=== PATIENT | female | born 1935 | race Caucasian/White ===

== ENCOUNTER 2024-05-20 10:48 | Emergency (ER) | payer OTHER, MEDICARE ==
[2024-05-20 11:44] LABS: Absolute Basophils 0.1 K/uL (0-0.5); Absolute Lymphocytes (CBC) 2.2 K/uL (0.7-4.9); Absolute Monocytes 0.5 K/uL (0.1-1.3); Absolute Neutrophil 17.8 K/uL (1.8-8.0); Basophils % 0.3 % (0-1.3); Eosinophils % 0.2 % (0-4.4); Hematocrit 18.4 % (36.0-45.0); Lymphocytes % 10.8 % (15.3-44.8); MCH 30.9 pg (27.0-35.0); MCHC 32.5 g/dL (32.0-36.0); Monocytes % 2.6 % (3.3-12.3); Neutrophils % 86.1 % (41.7-73.7); Platelets 543 thou/uL (152-406); RBC Red Blood Cell Count 1.93 M/uL (3.86-4.86); Red Cell Distribution Width 14.2 % (12.1-15.2)
--- NOTE | 2024-05-20 11:48 | RAD REPORT ---
Procedure: Chest Single View HISTORY: Shortness of breath COMPARISON: none FINDINGS: Mild patchy right upper lobe opacities. Mild left upper lobe opacity. Peribronchial thickening. No significant pleural effusion noted. The heart is normal size. IMPRESSION: Mild patchy right upper lobe opacities probably pneumonia. Mild left upper lobe opacities may represent additional infection.
[2024-05-20 11:52] LABS: Protime INR 1.24
[2024-05-20 12:07] LABS: ALT/SGPT 30 U/L (13-56); AST/SGOT 23 U/L (15-37); Albumin 2.3 g/dL (3.4-5.0); Albumin/Globulin Ratio 0.6 (1.1-1.8); Alkaline Phosphatase 82 U/L (45-117); Anion Gap 8.8 mEq/L (5.0-15.0); BUN Blood Urea Nitrogen 46 mg/dL (7-18); Bicarbonate 28 mEq/L (21-32); Bilirubin Total 0.2 mg/dL (0.2-1.0); Globulin 4.1 g/dL (2.3-3.5); Glomerular Filtration Rate 47 ml/min (=/>90); Glucose Level 116 mg/dL (74-106); NT PRO-BNP 258 pg/mL (<450); Potassium 3.8 mEq/L (3.5-5.1); Protein, Total 6.4 g/dL (6.4-8.2); Sodium Level 136 mEq/L (136-145); Troponin High Sensitivity 4.8 pg/mL (<58.9)
[2024-05-20 12:08] LABS: Bilirubin Direct < 0.2 mg/dL (0-0.2)
[2024-05-20] MEDS ORDERED: NA CHLORIDE 0.9% 100 ML ONE (12:14)
[2024-05-20] MEDS ORDERED: VANCOMYCIN 1 GM/VIAL ONE (12:15)
[2024-05-20] MEDS ORDERED: NA CHLORIDE 0.9% 250 ML ONE ×2 (12:15→17:57)
[2024-05-20] MEDS ORDERED: CEFEPIME 1 GM/VIAL ONE (12:15)
[2024-05-20 12:17] LABS: Influenza A Ag Negative; Influenza B Ag Negative; SARS-CoV-2 Antigen Rapid Res Negative (Negative)
--- NOTE | 2024-05-20 13:44 | EDPHYS ---
Physician Documentation [facility] Name: Meenu Rangel Age: 89 yrs Sex: Female : 1935 Arrival Date: 05/20/2024 Time: 10:48 Bed 8 Private MD: ED Physician Julee Sierra HPI: 05/20 10:50 This 89 yrs old Female presents to ER via Unassigned with complaints of COPD, SOB. sp3 10:50 89-year-old female with history of COPD and lung cancer presents to the ED from nursing sp3 home across the street for chief complaint cough and congestion and concerns of COPD exacerbation coupled with wheezing. No history of CHF noted. Patient denies any headache, fever, chest pain, abdominal pain, vomiting, syncope, rash, known sick contacts, or any other signs or symptoms on ROS at this time. She does endorse mild diarrhea which started yesterday evening.. 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 - Infectious Disease History:: Denies. - Social history:: Smoking status: Patient denies any tobacco usage or history of. ROS: 10:51 Constitutional: Negative for fever, chills, and weight loss, Eyes: Negative for injury, sp3 pain, redness, and discharge, ENT: Negative for injury, pain, and discharge, Neck: Negative for injury, pain, and swelling, Cardiovascular: Negative for chest pain, palpitations, and edema, Back: Negative for injury and pain, MS/Extremity: Negative for injury and deformity, Skin: Negative for injury, rash, and discoloration, Neuro: Negative for headache, weakness, numbness, tingling, and seizure, Psych: Negative for depression, anxiety, suicide ideation, homicidal ideation, and hallucinations, Allergy/Immunology: Negative for hives, rash, and allergies, Endocrine: Negative for neck swelling, polydipsia, polyuria, polyphagia, and marked weight changes, Hematologic/Lymphatic: Negative for swollen nodes, abnormal bleeding, and unusual bruising, 10:51 All other systems are negative, Exam: 10:51 Constitutional: This is a well developed, well nourished patient who is awake, alert, sp3 and in no acute distress. Head/Face: Normocephalic, atraumatic. Eyes: Pupils equal round and reactive to light, extra-ocular motions intact. Lids and lashes normal. Conjunctiva and sclera are non-icteric and not injected. Cornea within normal limits. Periorbital areas with no swelling, redness, or edema. Neck: Trachea midline, no thyromegaly or masses palpated, and no cervical lymphadenopathy. Supple, full range of motion without nuchal rigidity, or vertebral point tenderness. No Meningismus. Chest/axilla: Normal chest wall appearance and motion. Nontender with no deformity. No lesions are appreciated. Cardiovascular: Regular rate and rhythm with a normal S1 and S2. No gallops, murmurs, or rubs. Normal PMI, no JVD. No pulse deficits. Abdomen/GI: Soft, non-tender, with normal bowel sounds. No distension or tympany. No guarding or rebound. No evidence of tenderness throughout. Back: No spinal tenderness. No costovertebral tenderness. Full range of motion. Skin: Warm, dry with normal turgor. Normal color with no rashes, no lesions, and no evidence of cellulitis. MS/ Extremity: Pulses equal, no cyanosis. Neurovascular intact. Full, normal range of motion. Neuro: Awake and alert, GCS 15, oriented to person, place, time, and situation. Cranial nerves II-XII grossly intact. Motor strength 5/5 in all extremities. Sensory grossly intact. Cerebellar exam normal. Normal gait. Psych: Awake, alert, with orientation to person, place and time. Behavior, mood, and affect are within normal limits. 10:51 Respiratory: Scattered wheeze noted. Patient in no respiratory distress. Pulse oxygenation 98% on 2 L her normal baseline oxygen., 13:17 ECG was reviewed by the Attending Physician. EKG demonstrates normal sinus rhythm at 84 sp3 bpm with QTc at 503, normal axis, normal QRS, nonspecific diffuse ST/T changes without evidence of acute ischemia. Excessive noise in EKG noted. Vital Signs: 10:57 BP 135 / 46; Pulse 84; Resp 18; Temp 97.8; Pulse Ox 100% on 2 lpm NC; Weight 58.97 kg; ph Height 4 ft. 11 in. ; 12:00 BP 117 / 46; Pulse 81; Resp 20; Pulse Ox 99% on 2 lpm NC; ph 13:00 BP 102 / 74; Pulse 87; Resp 16; Pulse Ox 100% on 2 lpm NC; ph 14:00 BP 121 / 55; Pulse 89; Resp 16; Pulse Ox 99% on 2 lpm NC; ph 15:00 BP 114 / 53; Pulse 91; Resp 16; Pulse Ox 99% on 2 lpm NC; ph 16:00 BP 131 / 47; Pulse 96; Resp 18; Pulse Ox 100% on 2 lpm NC; ph 17:00 BP 105 / 46; Pulse 95; Resp 18; Pulse Ox 98% on 2 lpm NC; ph 17:58 BP 111 / 40; Pulse 92; Resp 18; Pulse Ox 98% on 2 lpm NC; ph 19:49 BP 105 / 58; Pulse 93; Resp 16 S; Temp 98.6(O); Pulse Ox 97% on 2 lpm NC; ha1 10:57 Body Mass Index 26.26 (58.97 kg, 149.86 cm) ph MDM: 10:49 Medical Screening Exam initiated sp3 10:54 Data reviewed: vital signs, nurses notes, old medical records, lab test result(s), EKG, sp3 radiologic studies. ED course: 89-year-old female with PMH above now with COPD exacerbation and wheezing. Differential diagnosis include COPD exacerbation, bronchitis, pneumonia, upper respiratory infection, COVID-19, influenza, among others. I am not highly suspicious of CHF, ACS, TAD, PE, or any other critical process at this time. Workup will include chest x-ray, EKG and general labs. Will continue nebs and patient has already received Solu-Medrol by EMS 125 mg IV. Disposition pending workup and patient course with possible discharge home if workup negative and patient is improved.. 14:57 ED course: Pt with melena on stool in ED and hgb 6.0 -- will transfer for GI consult sp3 and blood is being transfused. Continue abx for pneumonia. . 05/20 14:54 Order name: ABO/RH typing [facility] 05/20 14:54 Order name: Antibody Screen [facility] 05/20 10:49 Order name: Basic Metabolic Panel; Complete Time: 13:14 sp3 05/20 10:49 Order name: CBC with Diff; Complete Time: 14:08 sp3 05/20 10:49 Order name: LFT's; Complete Time: 13:14 sp3 05/20 10:49 Order name: Magnesium; Complete Time: 13:14 sp3 05/20 10:49 Order name: NT PRO-BNP; Complete Time: 13:14 sp3 05/20 10:49 Order name: PT-INR; Complete Time: 13:14 sp3 05/20 10:49 Order name: Troponin HS; Complete Time: 13:14 sp3 05/20 10:55 Order name: COVID-19 Ag + Flu A+B Ag; Complete Time: 13:14 sp3 05/20 11:51 Order name: Blood Culture Adult (2) sp3 05/20 12:06 Order name: Manual Differential; Complete Time: 14:08 EDMS 05/20 12:11 Order name: Lactate w/ 2H reflex if indic.; Complete Time: 13:14 sp3 05/20 14:52 Order name: PRBC sp3 05/20 14:52 Order name: Type And Screen sp3 05/20 15:00 Order name: BB Add On EDMS 05/20 18:37 Order name: ABO/RH no charge EDMS 05/20 10:49 Order name: XRAY Chest (1 view); Complete Time: 11:50 sp3 05/20 10:49 Order name: EKG; Complete Time: 10:50 sp3 05/20 10:49 Order name: Cardiac monitoring; Complete Time: 11:52 sp3 05/20 10:49 Order name: EKG - Nurse/Tech; Complete Time: 12:30 sp3 05/20 10:49 Order name: IV Saline Lock; Complete Time: 11:52 sp3 05/20 10:49 Order name: Labs collected and sent; Complete Time: 11:52 sp3 05/20 10:49 Order name: O2 Per Protocol; Complete Time: 11:06 sp3 05/20 10:49 Order name: O2 Sat Monitoring; Complete Time: 11:06 sp3 Administered Medications: 12:41 Drug: Cefepime IVPB 1 grams IVPB at 200 ml/hr once over 30 mins; (mix in NS 100 mL) ph Route: IVPB; Rate: 200 ml/hr; Infused Over: 30 mins; Site: right antecubital; 13:15 Follow up: IV Status: Completed infusion ap3 13:15 Drug: vancoMYCIN IVPB 1 grams IVPB once over 2 hrs Route: IVPB; Infused Over: 2 hrs; ap3 Site: right forearm; 14:45 Follow up: Response: No adverse reaction; IV Status: Completed infusion ph 16:04 Drug: morphine IVP or IV 2 mg IVP once over 4 mins Route: IVP; Infused Over: 4 mins; ph Site: right antecubital; 16:30 Follow up: Response: No adverse reaction ph 19:00 Follow up: Response: No adverse reaction; Pain is decreased; RASS: Alert and Calm (0) ha1 16:04 Drug: Ondansetron IVP 4 mg IVP once; over 2 minutes Route: IVP; Site: right antecubital;ph 19:00 Follow up: Response: No adverse reaction ha1 16:08 Drug: Pantoprazole IV 8 mg/hr IV at 25 ml/hr continuous; (Standard dilution is 80 mg in ph 250 mL NS) Route: IV; Rate: 25 ml/hr; Site: right antecubital; 19:30 Follow up: Response: No adverse reaction; IV Status: Infusion continued upon transfer ha1 16:20 Not Given (Other Intervention Used): DuoNeb Nebulize (3:1) (2.5 mg - 0.5 mg) 3 ml ph Nebulizer once Disposition Summary: 05/20/24 14:53 Transfer Ordered Notes: Transfer Location: [facility] sp3 Reason: Higher level of care sp3 Condition: Stable(05/20/24 14:53) sp3 Problem: an acute exacerbation(05/20/24 14:53) sp3 Symptoms: have worsened(05/20/24 14:53) sp3 Accepting Physician: TBD(05/20/24 19:58) ph Diagnosis - pneumonia, GI Bleed sp3 Forms: - Medication Reconciliation Form sp3 - SBAR form sp3 Signatures: Dispatcher [employer] EDBibiana Emanuel Patricia, RN RN ph Lanette Beasley RN RN ap3 Julee Sierra MD MD sp3 Chrissie Marquez RN ha1 Corrections: (The following items were deleted from the chart) 10:50 10:50 BASIC METABOLIC PANEL+C.LAB.BRZ ordered. EDMS EDMS 10:50 10:50 CBC+H.LAB.BRZ ordered. EDMS EDMS 10:50 10:50 HEPATIC FUNCTION+C.LAB.BRZ ordered. EDMS EDMS 10:50 10:50 MAGNESIUM+C.LAB.BRZ ordered. EDMS EDMS 10:50 10:50 PROBNP+C.LAB.BRZ ordered. EDMS EDMS 10:50 10:50 PROTIME (+INR)+COAG.LAB.BRZ ordered. EDMS EDMS 10:50 10:50 Troponin High Sensitivity+C.LAB.BRZ ordered. EDMS EDMS 10:50 10:50 Chest Single View+RAD.RAD.BRZ ordered. EDMS EDMS 14:52 13:43 Inpatient Admission sp3 sp3 14:52 13:43 Dotty Packer sp3 sp3 14:52 13:43 Telemetry/MedSurg (observation) sp3 sp3 14:52 13:43 Stable sp3 sp3 14:52 13:43 an acute exacerbation sp3 sp3 14:52 13:43 have worsened sp3 sp3 14:52 13:43 Standard sp3 sp3 14:52 13:43 sp3 sp3 14:52 13:43 Pneumonia, sepsis, COPD sp3 sp3 15:46 14:34 Type and Screen ordered. EDMS EDMS 19:58 14:53 TBD sp3 ph
--- NOTE | 2024-05-20 13:44 | ER ---
Nurse's Notes [facility] Name: Meenu Rangel Age: 89 yrs Sex: Female : 1935 Arrival Date: 05/20/2024 Time: 10:48 Bed 8 Private MD: Diagnosis: pneumonia, GI Bleed Presentation: 05/20 10:57 Chief complaint: EMS states: Pt from [facility], called EMS for generalized weakness, hx ph of COPD and lung cancer and uses continuous o2 at 2L/min, initial BP 102 systolic, EMS administered A\T\A x 1, 125 Solu-Medrol, approx 100 mL NS, pt also reports diarrhea that started yesterday. Coronavirus screen: Vaccine status: Patient reports receiving the 2nd dose of the covid vaccine. Ebola Screen: No symptoms or risks identified at this time. Initial Sepsis Screen: Does the patient meet any 2 criteria? No. Patient's initial sepsis screen is negative. Does the patient have a suspected source of infection? No. Patient's initial sepsis screen is negative. Risk Assessment: Do you want to hurt yourself or someone else? Patient reports no desire to harm self or others. 10:57 Method Of Arrival: EMS: [facility] ph 10:57 Acuity: LENNIE 3 ph 11:07 Onset of symptoms was May 20, 2024. Triage Assessment: 11:03 General: Appears in no apparent distress. Behavior is calm, cooperative. Pain: ph Complains of pain in suprapubic area. Neuro: Level of Consciousness is awake, alert, obeys commands, Oriented to person, place, time, situation. Cardiovascular: Capillary refill < 3 seconds in bilateral fingers Patient's skin is warm and dry. Respiratory: Airway is patent Respiratory effort is even, unlabored, Respiratory pattern is regular, symmetrical. GI: Abdomen is round Reports lower abdominal pain, diarrhea, nausea. Derm: Skin is pink, warm \T\ dry. Musculoskeletal: Amputation of R BKA. 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 - Infectious Disease History:: Denies. - Social history:: Smoking status: Patient denies any tobacco usage or history of. Screenin:06 [facility] ED Fall Risk Assessment (Adult) History of falling in the last 3 months, ph including since admission No falls in past 3 months (0 pts) Confusion or Disorientation No (0 pts) Intoxicated or Sedated No (0 pts) Impaired Gait Yes (1 pt) Mobility Assist Device Used Yes (1 pt) Altered Elimination Yes (1 pt) Score/Fall Risk Level 3 or more points = High Risk Oriented to surroundings, Maintained a safe environment, Hourly rounding (assess needs \T\ fall precautionary measures) done, Used ambulatory aids as needed (educated on \T\ assisted with). Abuse screen: Denies threats or abuse. Denies injuries from another. Nutritional screening: No deficits noted. Tuberculosis screening: No symptoms or risk factors identified. Assessment: 11:52 General: SEE TRIAGE ASSESSMENT. ph 14:00 Reassessment: Patient appears in no apparent distress at this time. Patient and/or ph family updated on plan of care and expected duration. Pain level reassessed. Patient is alert, oriented x 3, equal unlabored respirations, skin warm/dry/pink. 16:00 Reassessment: Patient appears in no apparent distress at this time. Patient and/or ph family updated on plan of care and expected duration. Pain level reassessed. Patient is alert, oriented x 3, equal unlabored respirations, skin warm/dry/pink. 18:19 Reassessment: Patient appears in no apparent distress at this time. Patient and/or ph family updated on plan of care and expected duration. Pain level reassessed. Patient is alert, oriented x 3, equal unlabored respirations, skin warm/dry/pink. Report called to WOODY Atkins at [facility]. 19:47 General: Appears uncomfortable, Behavior is calm, cooperative. Pain: Denies pain. ha1 Neuro: Level of Consciousness is awake, alert, obeys commands, Oriented to person, place, time, situation, Reports weakness generalized . Cardiovascular: Capillary refill < 3 seconds Patient's skin is warm and dry. Respiratory: Airway is patent Respiratory effort is even, unlabored, Respiratory pattern is regular, symmetrical. Derm: Skin is pale. Musculoskeletal: Circulation, motion, and sensation intact. 19:52 Reassessment: PATIENT BEING TRANSFERRED BY EMS. BLOOD TRANSFUSION STARTED AND MONITOR ha1 FOR THE FIRST 25 MINUTES. BLOOD TRANSFUSION WILL BE CONTINUE BY EMS. Vital Signs: 10:57 BP 135 / 46; Pulse 84; Resp 18; Temp 97.8; Pulse Ox 100% on 2 lpm NC; Weight 58.97 kg; ph Height 4 ft. 11 in. ; 12:00 BP 117 / 46; Pulse 81; Resp 20; Pulse Ox 99% on 2 lpm NC; ph 13:00 BP 102 / 74; Pulse 87; Resp 16; Pulse Ox 100% on 2 lpm NC; ph 14:00 BP 121 / 55; Pulse 89; Resp 16; Pulse Ox 99% on 2 lpm NC; ph 15:00 BP 114 / 53; Pulse 91; Resp 16; Pulse Ox 99% on 2 lpm NC; ph 16:00 BP 131 / 47; Pulse 96; Resp 18; Pulse Ox 100% on 2 lpm NC; ph 17:00 BP 105 / 46; Pulse 95; Resp 18; Pulse Ox 98% on 2 lpm NC; ph 17:58 BP 111 / 40; Pulse 92; Resp 18; Pulse Ox 98% on 2 lpm NC; ph 19:49 BP 105 / 58; Pulse 93; Resp 16 S; Temp 98.6(O); Pulse Ox 97% on 2 lpm NC; ha1 10:57 Body Mass Index 26.26 (58.97 kg, 149.86 cm) ph ED Course: 10:49 Patient arrived in ED. ph 10:49 Julee Sierra MD is Attending Physician. sp3 11:01 Triage completed. ph 11:04 Arm band placed on Patient placed in an exam room, on a stretcher. ph 11:06 Yoli France, RN is Primary Nurse. ph 11:07 Patient has correct armband on for positive identification. Bed in low position. Call ph light in reach. Side rails up X2. 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 Pulse ox on. NIBP on. 11:43 XRAY Chest (1 view) In Process Unspecified. EDMS 12:35 First set of blood cultures drawn Second set of blood cultures drawn by me. kb4 12:43 Inserted saline lock: 20 gauge in left antecubital area, using aseptic technique. Blood kb4 collected. Flushed with 10 mL NS. 12:44 EKG done, by ED staff, reviewed by Julee Sierra MD. kb4 13:43 Dotty Packer MD is Hospitalizing Provider. sp3 15:33 initiated transfer to [facility]. bd 16:50 pt accepted in transfer to [facility] rm [address] Layton, admin approval given bd by Ying Greenwood. 18:30 No provider procedures requiring assistance completed. Patient transferred, IV remains ph in place. Administered Medications: 12:41 Drug: Cefepime IVPB 1 grams IVPB at 200 ml/hr once over 30 mins; (mix in NS 100 mL) ph Route: IVPB; Rate: 200 ml/hr; Infused Over: 30 mins; Site: right antecubital; 13:15 Follow up: IV Status: Completed infusion ap3 13:15 Drug: vancoMYCIN IVPB 1 grams IVPB once over 2 hrs Route: IVPB; Infused Over: 2 hrs; ap3 Site: right forearm; 14:45 Follow up: Response: No adverse reaction; IV Status: Completed infusion ph 16:04 Drug: morphine IVP or IV 2 mg IVP once over 4 mins Route: IVP; Infused Over: 4 mins; ph Site: right antecubital; 16:30 Follow up: Response: No adverse reaction ph 19:00 Follow up: Response: No adverse reaction; Pain is decreased; RASS: Alert and Calm (0) ha1 16:04 Drug: Ondansetron IVP 4 mg IVP once; over 2 minutes Route: IVP; Site: right antecubital;ph 19:00 Follow up: Response: No adverse reaction ha1 16:08 Drug: Pantoprazole IV 8 mg/hr IV at 25 ml/hr continuous; (Standard dilution is 80 mg in ph 250 mL NS) Route: IV; Rate: 25 ml/hr; Site: right antecubital; 19:30 Follow up: Response: No adverse reaction; IV Status: Infusion continued upon transfer ha1 16:20 Not Given (Other Intervention Used): DuoNeb Nebulize (3:1) (2.5 mg - 0.5 mg) 3 ml ph Nebulizer once Medication: 11:07 VIS not applicable for this client. ph 19:00 Blood products: PRBCs X 1 unit given. ph Outcome: 13:43 Decision to Hospitalize by Provider. sp3 14:53 ER care complete, transfer ordered by MD. sp3 19:35 Transferred by ground EMS [facility] to [facility], [facility], Transfer form ph completed. X-rays sent w/ patient. 19:35 Condition: stable 19:35 Instructed on the need for transfer, 19:58 Patient left the ED. ph Signatures: Dispatcher [employer] EDMS Bibiana Cerrato Patricia, RN RN ph Lanette Beasley RN RN [email or web address] Julee Sierra MD MD sp3 Chrissie Marquez RN RN ha1 Iza Bridges kb4 Corrections: (The following items were deleted from the chart) 19:59 18:00 Blood products: PRBCs X 1 unit given. ph ph
[2024-05-20 14:05] LABS: Differential Total Cells Count 100; Eosinophils 1 % (0-3); Segmented Neutrophils 83 % (40-80)
[2024-05-20 14:06] LABS: Blood Morphology Comment NOT SEEN (NOT SEEN); Lymphocytes 14 % (15-42); Monocytes 2 % (0-10); Platelet Estimate INCR
[2024-05-20] MEDS ORDERED: SODIUM CHLORIDE 0.9% 10ML INJ IV PRN (14:49)
[2024-05-20] MEDS ORDERED: PANTOPRAZOLE 40 MG INJ IVP ONE (14:49)
--- NOTE | 2024-05-20 14:56 | P.CNS ---
Date of Consult: 05/20/24 Reason for Consult: Pneumonia and anemia Chief Complaint: Shortness of breath History of Present Illness: Patient is an 89-year-old female who has a history of lung cancer and Crohn's disease and presents to the emergency room with shortness of breath. 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 Patient has been getting radiation treatment. She has been to follow-up as an outpatient and it for workup is okay then she will come back in a year. Patient has not really been taking a lot of her medications for her Crohn's disease. She still remains fairly active at assisted living-she is at [facility]. She decided to come into the ER because she was feeling really weak and she gets really short of breath. In the ER she was found to have a leukocytosis and her CT scan suggestive minimal infiltrates. However, on reviewing her CT scan from [facility] she has had similar findings. However, she was also severely anemic with a hemoglobin of 6.0. She appears to have a microcytic hypochromic anemia. She also has noted melanotic stools. At this time patient will get started on Protonix drip and IV fluids and will transfuse 1 unit of packed red blood cells. Home medications list reviewed: Yes - Past Medical/Surgical History -: Lung adenocarcinoma -: Crohn's disease Past Surgical History: Patient denies surgical history - Family History Father Family History: Reviewed- Non-Contributory - Social History Smoking Status: Never smoker Alcohol use: No CD- Drugs: No Review of Systems 10-point ROS is otherwise unremarkable Physical Examination reviewed General: Alert, In no apparent distress, Oriented x3 HEENT: Atraumatic, PERRLA, Other (Conjunctiva pallor), EOMI, Sclerae nonicteric Neck: Supple, 2+ carotid pulse no bruit, No LAD, Without JVD or thyroid abnormality Respiratory: Diminished Cardiovascular: Regular rate/rhythm, Normal S1 S2 Gastrointestinal: Normal bowel sounds, Soft and benign, Non-distended, Tenderness (epigastric) Musculoskeletal: No clubbing, No swelling, No tenderness Integumentary: No rashes Neurological: Sensation intact, Cranial nerves 3-12 intact Lymphatics: No axilla or inguinal lymphadenopathy Laboratory Data (last 24 hrs) 05/20/24 05/20/24 05/20/24 11:23 11:23 11:23 WBC 20.60 H Hgb 6.0 L Hct 18.4 L Plt Count 543 H PT 14.0 H INR 1.24 Sodium 136 Potassium 3.8 BUN 46 H Creatinine 1.12 H Glucose 116 H Magnesium 2.0 Total Bilirubin 0.2 AST 23 ALT 30 Alkaline Phosphatase 82 - Problems (1) Anemia due to acute blood loss Current Visit: Yes Status: Acute (2) Interstitial pneumonia Current Visit: Yes Status: Acute (3) History of adenocarcinoma of lung Current Visit: Yes Status: Acute (4) Crohn's disease Current Visit: Yes Status: Acute Conclusions/ Impression: Plan: 1. Anemia of acute blood loss; -Continue with IV hydration and PPI drip -Continue with IV antibiotics -Continue with pain control -NPO -GI consultation -Serial H&H, and we will monitor LFTs and lipase along with electrolytes. 2. Interstitial pneumonia with leukocytosis; -Continue with IV antibiotics -Awaiting sputum and blood culture -Repeat chest x-ray -CT scan of the chest if pneumonia is not improving- -Continue with nebs as needed -O2 per protocol -Continue with gentle hydration -Repeat labs including CBC and renal function in a.m. 3. History of adenocarcinoma of the lung; follow-up with MD Rodrigez. Patient only getting radiation therapy and no further intervention required 4. History of Crohn disease; currently not on any immunosuppressants 5. GI DVT prophylaxis Critical Care: Yes Time Spent Managing Pts care (In Minutes): 50
[2024-05-20] MEDS ORDERED: PANTOPRAZOLE INJ 80 MG in NA CHLORIDE 0.9% 250 ML IV SCH (15:00)
[2024-05-20] MEDS ORDERED: ONDANSETRON 4 MG/2 ML VIAL ONE (15:55)
[2024-05-20] MEDS ORDERED: MORPHINE 2 MG/ML SYR ONE (15:55)
[2024-05-20 20:16] VITALS: BP 105/58; TEMP 98.6; O2SAT 97
== END 2024-05-20 19:58 | disposition short-term general hospital (02) ==
LOC: ER 10:48
PROC: 30233N1 Transfusion of Nonautologous Red Blood Cells into Peripheral Vein, Percutaneous Approach (ICD-10-PCS; principal; 2024-05-20)
DX: J18.9 Pneumonia, unspecified organism (principal); K92.2 Gastrointestinal hemorrhage, unspecified; D62 Acute posthemorrhagic anemia; K50.90 Crohn's disease, unspecified, without complications; J44.9 Chronic obstructive pulmonary disease, unspecified; I50.9 Heart failure, unspecified; I10 Essential (primary) hypertension; Z89.511 Acquired absence of right leg below knee; Z85.118 Personal history of other malignant neoplasm of bronchus and lung; Z11.52 Encounter for screening for COVID-19
CPT/HCPCS: 93005; 87040 ×2; 85025; 80048; 36415; 86900; 83735; 86850; 85610; 86901; 80076; 83605; 86920; 84484; 83880; 71045; 87428; 36430; J2470; J3370; J2270; J2405; P9016; J7050; J0692

== ENCOUNTER 2024-11-06 14:34 | Emergency (ER) | payer OTHER, MEDICARE ==
--- OUTSIDE RECORDS SUMMARY | 2024-11-06 14:38 | XMS REPORT | Clinical Summary ---
Author Name Unknown Organization [facility] Address [address] [place] [address] Care Team Providers Care Beer Brewer Name Role Phone Christi Hodgson Unavailable [phone] Victorina Bender MD Primary Care Provider [phone] Karthikeyan Toledo MD Unavailable [phone] Kiana Arreaga MD Unavailable [phone] Nico Lopez MD Unavailable Camilla Carlos APRN Unavailable [phone] Allergies Active Allergy Reactions Criticality Noted Date Comments Acetazolamide Rash Low 01/03/2021 Amoxicillin Hives,Rash Low 01/03/2021 Azithromycin Diarrhea,GI Intolerance 02/18/2021 Clavulanic Acid Rash Low 01/03/2021 Iodine Rash Low 06/28/2006 11/23/23:CT without contrast as per [employer]. 04/09/23-Per pt's grand daughter she had mild rash after IV Iodine contrast long time ago, does not remember how long ago, no SOB or difficulty swallowing reported. Penicillins Diarrhea,Hives,Rash, Othe r (See Comments) High 03/13/2011 Medications * This document contains information received from the source organization and may not represent a complete record from that organization. hydrALAZINE (APRESOLINE) 25 mg tablet Take 1 tablet (25 mg) by mouth twice daily. Active traZODone (DESYREL) 100 mg tablet Take 1 tablet (100 mg) by mouth at bedtime. 4 Active cholecalcifero l, vitamin D3, 25 mcg (1,000 unit) tablet Take 1 tablet (1,000 Units) by mouth daily. Active allopurinol (ZYLOPRIM) 100 mg tablet Take 1 tablet (100 mg) by mouth twice daily. Active busPIRone (BUSPAR) 7.5 mg tablet Take 1 tablet (7.5 mg) by mouth twice daily. Active labetalol (TRANDATE) 200 mg tablet Take 1 tablet (200 mg) by mouth twice daily. Active guaifenesin/de xtromethorphan (MUCINEX DM ORAL) Take 1 tablet by mouth as needed. Active traMADol (ULTRAM) 50 mg tablet Take 1 tablet (50 mg) by mouth 2 (two) times a day as needed. Active acetaminophen (TYLENOL) 325 mg tablet Take 1 tablet (325 mg) by mouth every 6 (six) hours as needed for mild pain. Active BABY ASPIRIN ORAL Take 1 tablet by mouth daily. Active diphenhydrAMIN E (BENADRYL) 25 mg capsule Take 1 capsule (25 mg) by mouth as needed. Active clopidogrel (PLAVIX) 75 mg tablet Take 1 tablet (75 mg) by mouth daily. Active ferrous sulfate 325 (65 FE) MG EC tablet Take 1 tablet (325 mg) by mouth daily with breakfast. Active melatonin 5 mg cap Take 1 capsule by mouth daily. Active polyethylene glycol (MIRALAX) 17 g packet Take 17 g by mouth as needed. Active ALPRAZolam (XANAX) 0.25 mg tablet Take 1 tablet (0.25 mg) by mouth as needed. Active albuterol (ACCUNEB) 0.63 mg/3 mL nebulizer solution Inhale 3 mL (0.63 mg) by nebulization every 4 (four) hours as needed. 4 Active atorvastatin (LIPITOR) 20 mg tablet Take 1 tablet (20 mg) by mouth daily. Active ZINC ACETATE ORAL Take 1 tablet by mouth daily. 025 Discontin ued(Thera py completed ) dextromethorph an-guaiFENesin (ROBITUSSIN-DM ) 10 mg-100 mg/5 mL liquid Take 20 mL by mouth every 6 (six) hours as needed for cough or congestion. 025 Discontin ued(Thera py completed ) Saccharomyces boulardii (FLORASTOR) 250 mg capsule Take 1 capsule (250 mg) by mouth daily. Discontin ued(Other /Not Applicabl e) ascorbic acid, vitamin C, (vitamin C) 100 mg tablet Take 1 tablet (100 mg) by mouth daily. Discontin ued(Other /Not Applicabl e) benzonatate (TESSALON) 100 mg capsule Take 1 capsule (100 mg) by mouth every 8 (eight) hours as needed for cough. Discontin ued(Other /Not Applicabl e) gabapentin (NEURONTIN) 300 mg capsule Take 1 capsule (300 mg) by mouth 3 (three) times a day. Discontin ued(Other /Not Applicabl e) furosemide (LASIX) 20 mg tablet Take 1 tablet (20 mg) by mouth daily. Discontin ued(Other /Not Applicabl e) multivitamin tab tablet Take 1 tablet by mouth daily. Discontin ued(Other /Not Applicabl e) potassium chloride (K-DUR,KLOR-CO N M) 20 mEq tablet Take 1 tablet (20 mEq) by mouth daily. Discontin ued(Other /Not Applicabl e) loratadine (CLARITIN) 10 mg tablet Take 1 tablet (10 mg) by mouth as needed for allergies. Discontin ued(Other /Not Applicabl e) simethicone (MYLICON) 125 mg chewable tablet Chew and swallow 1 tablet (125 mg) by mouth every 6 (six) hours as needed for flatulence. Discontin ued(Thera py completed ) loperamide (IMODIUM) 2 mg capsule Take 1 capsule (2 mg) by mouth as needed for diarrhea. Discontin ued(Thera py completed ) guaiFENesin (MUCINEX) 100 mg/5 mL syrup Take 5 mL (100 mg) by mouth as needed for cough or congestion. Discontin ued(Other /Not Applicabl e) triamcinolone (KENALOG) 0.1% cream Apply 1 application topically to affected area(s) as needed. Discontin ued(Thera py completed ) ondansetron (ZOFRAN) 4 mg tablet Take 1 tablet (4 mg) by mouth as needed. 025 Discontin ued(Other /Not Applicabl e) Active Problems Problem Noted Date Diagnosed Date Hypoxia 11/23/2023 Assessment & Plan (11/24/2023 11:09 AM CDT): Intermittent Today's RA O2 saturations 96%. 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 DLCO is moderately reduced No indication for inhaled therapies Intermittent hypoxia related to atelectasis and volume loss following radiation. No supplemental oxygen needed at rest. Unable to determine if supplemental oxygen is required with exertion. She likely benefits from nocturnal oxygen and per her granddaughter she's receiving oxygen PRN in her current rehab facility but she's unsure the liter flow or if formal study was done. Will reach out to case management to arrange referral to [facility] for possible nocturnal oximetry study in order to determine presence of nocturnal hypoxia and if so the optimal liter flow for this patient with mild COPD. Continue incentive spirometry 10 inhalations at least Q 2-4 hours PRN while awake. 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 There is evidence of volume loss and fibrotic changes in the SAMUEL post radiation. Atelectatic changes are improved in the RML but increased in the RLL. Imaging was reviewed with Dr. Toledo. There is no evidence of radiation pneumonitis. No indication for bronchoscopy or Prednisone taper. 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 Blood coagulation disorder 02/06/2020 Overview (04/04/2023): on ASA and plavix; no blood clots Crohn's disease 02/05/1994 Overview (04/04/2023): no meds Hypertension 02/05/1993 Overview (04/04/2023): controlled; on diuretic Encounters Date Type Department Care Team Description 07/23/2024 Results Follow-Up Cancer [facility] ([facility]) [address] [place] [address], [address] [place] [address] Camilla Carlos, RADIO REPAIRER DOMESTIC Mammography Digital Diagnostic Bilateral with Dharmesh 07/23/2024 Orders Only [facility] ([facility]) [address] [facility], [address] [place] [address] Camilla Carlos, RADIO REPAIRER DOMESTIC Mass of right breast (Primary Dx) 07/21/2024 11:32 AM CDT - 07/21/2024 11:59 PM CDT Hospital Encounter Breast Imaging [facility], 5th [place] [address] Camilla Carlos, RADIO REPAIRER DOMESTIC Mammography abnormal Discharge Disposition: Home 07/21/2024 10:00 AM CDT Consult Undiagnosed Breast Clinic [address] [facility], 5th [place] [address] Camilla Carlos, RADIO REPAIRER DOMESTIC Mammography assessment (Category 3) - Probably benign finding, short interval follow-up (Primary Dx); Mammographic mass of right breast 07/21/2024 Travel 07/15/2024 Orders Only [facility] [address] [address] [facility] [address], [address] [place] [address] Camilla Carlos APRN Mammography abnormal (Primary Dx) 07/14/2024 12:05 PM CDT - 07/14/2024 11:59 PM CDT Hospital Encounter [facility] [address] [facility] Main Bldg, [address]st [place] [address] Nico Lopez MD Adenocarcinoma, NOS of upper lobe, 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> Discharge Disposition: Home 07/14/2024 7:10 AM CDT - 07/14/2024 12:04 PM CDT Hospital Encounter [facility] [address] [facility], 3rd [place] [address] Yoli Clarke APRN Adenocarcinoma, NOS of upper lobe, 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> Discharge Disposition: Home 07/14/2024 Travel 07/07/2024 Documentation Breast Imaging [address] [facility], 5th [place] [address] Lisa Crowe, RT 05/20/2024 Orders Only Undiagnosed Breast Clinic [address] [facility], 5th [place] [address] Bret George APRN Mammography abnormal (Primary Dx) 02/18/2024 9:31 AM BOTTLE WASHER MACHINE - 02/18/2024 11:59 PM BOTTLE WASHER MACHINE Hospital Encounter [facility] [address] [facility] Main Bldg, [address]st [place] [address] Nico Lopez MD Adenocarcinoma, NOS of upper lobe, 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> Discharge Disposition: Home 02/18/2024 7:25 AM BOTTLE WASHER MACHINE Ancillary Procedure CT Imaging [address] [facility], 7th [place] [address] Nico Lopez MD Adenocarcinoma, NOS of upper lobe, 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> 02/18/2024 Travel 12/18/2023 Documentation Cardiopulmonary Center - Pulmonology Medicine [address] [facility] Bldg, 6th [place] [address] Ying Neil, RADIO REPAIRER DOMESTIC 12/04/2023 Orders Only [facility] ([facility]) [address] [place] [address], [address] [place] [address] Kd Aldrich, RADIO REPAIRER DOMESTIC Mammography abnormal (Primary Dx) 11/27/2023 Telephone Internal Medicine Center [address], 9th [place] [address] Christy Colby, RADIO REPAIRER DOMESTIC 11/27/2023 Orders Only [facility] [address], 9th [place] [address] Lasha, Latira, RADIO REPAIRER DOMESTIC 11/26/2023 Telephone Internal [facility] Center [address] [facility] [address], 9th [place] [address] Christy Colby, RADIO REPAIRER DOMESTIC 11/26/2023 Orders Only [facility] [address], 9th [place] [address] Christy Colby, RADIO REPAIRER DOMESTIC Mammographic mass of right breast (Primary Dx) 11/23/2023 2:00 PM CDT Follow-Up Cardiopulmonary Center - Pulmonology Medicine [facility] [facility] [address]g, 6th [place] [address] Ying Neil, RADIO REPAIRER DOMESTIC Abnormal findings on diagnostic imaging of lung (Primary Dx); Chronic cough; Hypoxia 11/23/2023 9:13 AM CDT - 11/23/2023 11:59 PM CDT Hospital Encounter [facility] Treatment [facility] [address] [facility] [address], [address] [place] [address] Nico Lopez MD Adenocarcinoma, NOS of upper lobe, 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> Discharge Disposition: Home 11/23/2023 7:52 AM CDT - 11/23/2023 9:12 AM CDT Hospital Encounter Cardiopulmonary Center - Pulmonology Lab [address] [facility] Main [facility], 6th [place] [address] Ying Neil APRN Chronic cough; Shortness of breath Discharge Disposition: Home 11/23/2023 7:52 AM CDT - 11/23/2023 9:12 AM CDT Hospital Encounter Cardiopulmonary Center - Pulmonology Lab [facility] [facility], 6th [place] [address] Ying Neil APRN Chronic cough; Shortness of breath Discharge Disposition: Home 11/23/2023 6:11 AM CDT - 11/23/2023 7:51 AM CDT Hospital Encounter [facility] [address] [place] [address], 3rd [place] [address] Ryan Gibson APRN Adenocarcinoma, NOS of upper lobe, 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> Discharge Disposition: Home 11/23/2023 Case Management Case Management [address] [place] [address] Denita Dailey RN 11/23/2023 Travel 11/22/2023 10:15 AM CDT Ancillary Procedure [facility] [address] [address] Christy Colby, MELVI Mammographic mass of right breast 11/20/2023 Orders Only [facility] - Pulmonology Medicine [address] [place] [address], 6th [place] [address] Ying Neil APRN Chronic cough (Primary Dx); Shortness of breath 11/16/2023 5:18 PM CDT - 11/16/2023 8:57 PM CDT Emergency [facility] [address] [place] [address], 1st Floor [place] [address] Johnson Sierra MD Oxygen saturation below reference range (Primary Dx) Discharge Disposition: Home 11/16/2023 Travel 11/15/2023 Orders Only [facility] - Pulmonology Medicine [address] [place] [address], 6th [place] [address] Karthikeyan Toledo MD Chronic cough (Primary Dx) after 11/07/2023 Surgical History Surgery Date Site/Laterality Comments BSO W/COMPLETE OMENTECTOMY & COMPLETE HYSTERECTOMY BY [facility]BD [facility] 02/05/1969 - 02/04/1970 LEG AMPUTATION THROUGH KNEE 02/05/2021 - 02/04/2022 Right PLACEMENT DENTAL IMPLANT BREAST CYST EXCISION 02/05/1974 - 02/04/1975 Right BLADDER SUSPENSION 02/05/1979 - 02/05/1980 KIDNEY SURGERY 02/05/2007 - 02/05/2008 Right "Stent insertion" OH BRNSCHSC TNDSC EBUS DX/TX INTERVENTION PERPH LES 04/23/2023 N/A Procedure: ROBOTIC ASSISTED BRONCH WITH EBUS PERIPHERAL LESION PLUS EBUS 3 OR MORE NODES; Surgeon: Karthikeyan Toledo MD; Location: MAIN PULM PROC; Service: PULMONARY Medical History Medical History Date Comments Hypertension 1993 controlled; on d iuretic Pneumonia 2022 Crohn's disease 1994 no meds Insomnia Anxiety disorder using xanax at night Arthritis R hand; no meds Gout 2021 no meds; had amp utation due to infection/gout Chronic cough since last episo de of pneumonia 02/2023 Neuropathy "Right hand" Allergic urticaria Allergic rhinitis Blood coagulation disorder 2020 on A and plavix; no blood clots Urinary incontinence Family History Medical History Relation Name Comments Stroke Daughter 1 Stroke Daughter 2 Relation Name Status Comments Daughter 1 Daughter 2 Alive Social History Tobacco Use Types Packs/Day Years Used Date Smoking Tobacco: Former Cigarettes 1 42 1 955 - 1996 Passive Smoke Exposure: Never Smokeless Tobacco: Never Tobacco Cessation:Counseling Given: Not Answered Alcohol Use Standard Drinks/Week Comments Not Currently 1 (1 standard drink = 0.6 oz pur e alcohol) "Socially once a month" Comments No Sex and Gender Information Value Date Recorded Sex Assigned at Not on file Legal Sex Female 6:43 PM BOTTLE WASHER MACHINE Gender Identity Not on file Sexual Orientation Not on file Obstetrics History Para Term AB IAB SAB Ectopic Multiple Livin g Live Births 3 3 3 Date Outcome GA Total Labor Labor/2nd/3rd Weight Sex Type Anes PTL Yamel A1 A5 Name Clin Term Term Term Comments Menarche 14 Parity 33 OBC no Hormonal Therapy yes Progesterone Last Pap remote Abnormal Pap no Last Andres 04/26/2023 Last Colon remote Breast Bx Yes (OS) to the right breast teenage tumor Last Filed Vital Signs Vital Sign Reading Time Taken Comments Blood Pressure 153/70 07/21/2024 10:33 AM CDT Pulse 73 07/21/2024 10:33 AM CDT Temperature 37.2 °C (99 °F) 11/23/2023 11: 09 AM CDT Respiratory Rate 16 07/21/2024 10:3 3 AM CDT Oxygen Saturation 96% 07/14/2024 12: 37 PM CDT Inhaled Oxygen Concentration - - Weight 58.5 kg (128 lb 15.5 oz) 025 10:33 AM CDT Height 148 cm (4' 10.27") 07/21/2024 10 :33 AM CDT Body Mass Index 26.71 07/21/2024 10:33 AM CDT Plan of Treatment Upcoming Encounters Date Type Department Care Team (Late st Contact Info) Description 01/12/2025 6:25 AM BOTTLE WASHER MACHINE Appointment CT Imaging and Diagnostic Imaging [address] [facility], 3rd [place] [address] Yoli Ibanez, RADIO REPAIRER DOMESTIC [address] [place] [address] [email or web address] 01/12/2025 11:00 AM BOTTLE WASHER MACHINE Appointment Radiation Treatment Center [address] [facility], [address] [place] [place] [address] Nico Lopez MD [address] [place] [address] [email or web address] 02/11/2025 8:15 AM BOTTLE WASHER MACHINE Appointment Breast Imaging [address] [facility], 5th [place] [address] Camilla Carlos, RADIO REPAIRER DOMESTIC [address] [place] [address] [email or web address] 02/11/2025 10:00 AM BOTTLE WASHER MACHINE Office Visit [facility] ([facility]) [address] [facility], [address] [place] [address] CarlosCamilla, RADIO REPAIRER DOMESTIC [address] [place], [place] [id number] [email or web address] Health Maintenance Due Date Last Done Comments Pneumococcal Vaccine: 50+ Years (1 of - PCV) 987 COVID-19 Vaccine ( - season) 2024 Influenza Vaccine (#1) 2024 Medical Devices Implanted Type Area Wood Setter Device Identifier Shelf Expiration Date Model / Serial / Lot Stent Stent Right: Kidney Description:Cleared to [facility] ed with 3T by Dr. 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> SPIROMETRY W/DILATORS, DLCO AND BODY PLETHSMOGRAPHIC LUNG VOLUMES Routine 11/23/2023 9:01 AM CDT Chronic cough Shortness of breath CT CHEST WO CONTRAST Routine 11/23/2023 7:22 AM CDT Adenocarcinoma, NOS of upper lobe, 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> MAMMO DIGITAL DIAGNOSTIC RIGHT W DHARMESH Routine 11/22/2023 10:44 AM CDT Mammographic mass of right breast XR CHEST 1 VW STAT 11/16/2023 6:06 PM CDT HC POC BLOOD UREA NITRO-BUN STAT 11/16/2023 5:35 PM CDT .CBC STAT 11/16/2023 5:29 PM CDT PHOSPHORUS LEVEL STAT 11/16/2023 5:29 PM CDT MAGNESIUM LEVEL STAT 11/16/2023 5:29 PM CDT COMPREHENSIVE METABOLIC PANEL STAT 11/16/2023 5:29 PM CDT COMPLETE BLOOD COUNT W/ DIFFERENTIAL STAT 11/16/2023 5:29 PM CDT after 11/07/2023 Results * Mammography Digital Diagnostic Bilateral with Dharmesh (07/21/2024 1:33 PM CDT) Anatomical Region Laterality Modality Breast Bilateral Mammography Impressions 07/21/2024 1:48 PM CDT Right 1) Focal Asymmetry: Right breast 3.5 cm focal asymmetry at 11 o'clock. Diagnostic Mammogram in 6 Months is recommended. Left There is no mammographic evidence of malignancy in the left breast. Overall BI-RADS Category: 3 - Probably Benign Diagnostic Mammogram in 6 Months is recommended for the right breast. If this recommended follow up right mammogram shows no change, then the finding in the right breast can be considered benign. Narrative 07/21/2024 1:48 PM CDT CLINICAL INDICATION: Patient is a 89 y.o. female and is seen for abnormal mammogram. Mammography Digital Diagnostic Bilateral with Dharmesh Computer-aided detection was utilized by the radiologist in the interpretation of this examination. Tomosynthesis was performed in CC and MLO projections. COMPARISON: The present examination has been compared to prior imaging studies performed : 04/06/2023 Mammography Digital Diagnostic Bilateral with Dharmesh at [facility], 11/22/2023 Mammography Digital Diagnostic Right with Dharmesh at [facility] FINDINGS: The breasts are heterogeneously dense, which may obscure small masses. Right 1) Focal Asymmetry: There is a 3.5 cm focal asymmetry seen in the right breast at 11 o'clock, 4 cm from the nipple. Compared to the previous study, the asymmetry is unchanged. Prior ultrasound revealed no suspicious sonographic correlate, and this is likely transportation services representative of asymmetric fibroglandular tissue. There is a stable benign scar from prior remote excisional biopsy. Left There is no evidence of suspicious masses, calcifications, or other abnormal findings in the left breast. Camilla Carlos RADIO REPAIRER DOMESTIC IMG MAMMOGRAPHY ORDERABLES F inal Result * CT Chest without Contrast (07/14/2024 9:15 AM CDT) Only the most recent of3 resultswithin the time period is included. Anatomical Region Laterality Modality Chest Computed Tomogra phy 07/14/2024 9:56 AM CDT Impressions 07/14/2024 10:10 AM CDT 1. Stable appearance of the treated left upper lobe tumor with surrounding radiation fibrosis. 2. Other subsolid pulmonary nodules are stable measuring up to 16 mm, likely representing foci of atypical adenomatous hyperplasia or adenocarcinoma in situ. 3. Infectious/inflammatory nodular opacities from the prior study are improved, but there are new groundglass opacities in both lungs, likely representing pneumonia or pneumonitis. ACTIONABLE ITEMS/RECOMMENDATIONS*: None. *An Actionable Finding is a finding that may be unrelated to the original reason for imaging but potentially actionable, meaning further investigation may be necessary. The Actionable Findings Vigilance Unit (AFVU) assists medical providers with responding to additional radiologic findings that are unexpected and potentially actionable. Narrative 07/14/2024 10:10 AM CDT FULL RESULT: Examination: CT CHEST WO CONTRAST on 07/14/2024 9:15 AM. 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 Radiation therapy to the left upper lobe completed 06/08/2023 Indication: Lung cancer care (staging, restaging, surveillance, etc.), Lung adenocarcinoma, Cancer surveillance Comparison: 02/18/2024 Technique: CT of the chest is performed without intravenous contrast. Findings: Lungs/Airways/Pleura: Secretions are noted in the bronchus intermedius. There is stable, near-complete collapse of the right middle lobe. The treated tumor in the left upper lobe measuring 14 mm is stable. There is surrounding radiation fibrosis. A right lower lobe subsolid nodule measuring 16 mm is stable (series 302, image 71). Other, smaller groundglass and some solid lesions are stable. There is new, peripheral predominant groundglass opacity in the right upper lobe. There is new, mild groundglass opacity in the superior segment of the left lower lobe. Multiple nodular foci of consolidation on the prior study have resolved. The pleural spaces are clear. Neck/Mediastinum/Nodes/Heart: There is a small hiatal hernia. There are no enlarged lymph nodes in the chest. The heart size is normal. There is no pericardial effusion. Calcific coronary atherosclerosis is present. Upper abdomen: There is a stent in the right renal artery. The gallbladder has been removed. Bones/Soft Tissues: There is no suspicious osseous lesion. Procedure Note Jeffrey Fisher MD - 07/14/2024 FULL RESULT: Examination: CT CHEST WO CONTRAST on 07/14/2024 9:15 AM. 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 Findings: Lungs/Airways/Pleura: Secretions are noted in the bronchus intermedius.There is stable, near-complete collapse of the right middle lobe. Thetreated tumor in the left upper lobe measuring 14 mm is stable. There issurrounding radiation fibrosis. A right lower lobe subsolid nodulemeasuring 16 mm is stable (series 302, image 71). Other, smallergroundglass and some solid lesions are stable. There is new, peripheral predominant groundglass opacity in the rightupper lobe. There is new, mild groundglass opacity in the superior segmentof the left lower lobe. Multiple nodular foci of consolidation on theprior study have resolved. The pleural spaces are clear. Neck/Mediastinum/Nodes/Heart: There is a small hiatal hernia. There are noenlarged lymph nodes in the chest. The heart size is normal. There is nopericardial effusion. Calcific coronary atherosclerosis is present. Upper abdomen: There is a stent in the right renal artery. The gallbladderhas been removed. Bones/Soft Tissues: There is no suspicious osseous lesion. IMPRESSION: 1. Stable appearance of the treated left upper lobe tumor withsurrounding radiation fibrosis. 2. Other subsolid pulmonary nodules are stable measuring up to 16 mm,likely representing foci of atypical adenomatous hyperplasia oradenocarcinoma in situ. 3. Infectious/inflammatory nodular opacities from the prior study areimproved, but there are new groundglass opacities in both lungs, likelyrepresenting pneumonia or pneumonitis. ACTIONABLE ITEMS/RECOMMENDATIONS*: None. *An Actionable Finding is a finding that may be unrelated to the originalreason for imaging but potentially actionable, meaning furtherinvestigation may be necessary. The Actionable Findings Vigilance Unit(AFVU) assists medical providers with responding to additional radiologicfindings that are unexpected and potentially actionable. Yoli Ibanez APRN IM CT ORDERABLES Final Result * (ABNORMAL) SPIROMETRY W/DILATORS, DLCO AND BODY PLETHSMOGRAPHIC LUNG VOLUMES (11/23/2023 9:01 AM CDT) FVC (L) post 1.75 1.31 - 2.57 L 11/23/2023 8:57 AM CDT [facility] FEV1 (L) post 1.14 0.98 - 1.94 L 11/23/2023 8:57 AM CDT [facility] FEV1/FVC (%) post 64.79 64.04 - 90.16 % 11/23/2023 8:57 AM CDT [facility] FEF 25-75 (L/s) post 0.57 0.44 - 2.26 L/s 11/23/2023 8:57 AM CDT [facility] TLC (L) 4.37 3.10 - 5.03 L 11/23/2023 8:57 AM CDT [facility] RV (L) 2.65 1.04 - 2.83 L 11/23/2023 8:57 AM CDT [facility] RV/TLC (%) 60.58 31.34 - 60.70 % 11/23/2023 8:57 AM CDT [facility] DLCO UNADJ. SB_PRE 8.70(L) 11.46 - 20.89 ml/(min*mm Hg) 11/23/2023 8:57 AM CDT [facility] DLCO PB adj. SB 8.72(L) 11.46 - 20.89 ml/(min*mm Hg) 11/23/2023 8:57 AM CDT [facility] DLCO PRED.ADJ. SB_PRE 8.72(L) 11.46 - 20.89 ml/(min*mm Hg) 11/23/2023 8:57 AM CDT [facility] FVC (L) pre 1.66 1.31 - 2.57 L 11/23/2023 8:57 AM CDT [facility] FEV1 (L) pre 1.06 0.98 - 1.94 L 11/23/2023 8:57 AM CDT [facility] FEV1/FVC (%) pre 63.79(L) 64.04 - 90.16 % 11/23/2023 8:57 AM CDT [facility] FEF 25-75 (L/s) pre 0.53 0.44 - 2.26 L/s 11/23/2023 8:57 AM CDT [facility] FVC (% pred) pre 86 % 11/23/2023 8:57 AM CDT [facility] FVC_PREZ-SCORE -0.71 11/23/2023 8:57 AM CDT [facility] FVC (% pred) post 91 % 11/23/2023 8:57 AM CDT [facility] FEV1 (%pred) pre 72 % 11/23/2023 8:57 AM CDT [facility] FEV1_PREZ-SCOR E -1.39 11/23/2023 8:57 AM CDT [facility] FEV1 (% pred) post 77 % 11/23/2023 8:57 AM CDT [facility] FEV1/FVC (% pred) pre 81 % 11/23/2023 8:57 AM CDT [facility] FEV1/FVC_PREZ- SCORE -1.67 11/23/2023 8:57 AM CDT [facility] FEV1/FVC (% pred) post 83 % 11/23/2023 8:57 AM CDT [facility] FEF 25-75 (% pred) pre 47 % 11/23/2023 8:57 AM CDT [facility] JHF08-41%_PREZ -SCORE -1.36 11/23/2023 8:57 AM CDT [facility] FEF 25-75 (% pred) post 50 % 11/23/2023 8:57 AM CDT [facility] TLC (% pred) 109 % 11/23/2023 8:57 AM CDT [facility] TLC_PREZ-SCORE 0.61 11/23/2023 8:57 AM CDT [facility] RV (% pred) 146 % 11/23/2023 8:57 AM CDT [facility] RV_PREZ-SCORE 1.38 11/23/2023 8:57 AM CDT [facility] RVTLC_PRED 46 11/23/2023 8:57 AM CDT [facility] RV%TLC_PREZ-SC ORE 1.63 11/23/2023 8:57 AM CDT [facility] DLCO unadj. SB PRE% PRED 56 % 11/23/2023 8:57 AM CDT [facility] DLCOUNADJUSTED SB_PREZ-SCORE -3.00 11/23/2023 8:57 AM CDT [facility] DLCO PB adj. SB (% pred) 56 % 11/23/2023 8:57 AM CDT [facility] DLCOPBADJUSTED SB_PREZ-SCORE -2.99 11/23/2023 8:57 AM CDT [facility] DLCOpredicteda djustedSB_Pre% Pred 60 % 11/23/2023 8:57 AM CDT [facility] DLCOPREDADJUST EDSB_PREZ-SCOR E -2.67 11/23/2023 8:57 AM CDT [facility] 11/23/2023 8:18 AM CDT us Ying N Neil RADIO REPAIRER DOMESTIC PFT ORDERABLES Final Result [facility] * Mammography Digital Diagnostic Right with Dharmesh (11/22/2023 10:44 AM CDT) Anatomical Region Laterality Modality Breast Right Mammography Impressions 11/22/2023 11:35 AM CDT Right 1) Focal Asymmetry: Right breast 3.5 cm focal asymmetry at 11 o'clock. Diagnostic Mammogram in 6 Months is recommended. Overall BI-RAD Category: 3 - Probably Benign Diagnostic Mammogram in 6 Months is recommended for the right breast. The patient will be due for her annual mammogram at the time of follow-up. Narrative 11/22/2023 11:35 AM CDT CLINICAL INDICATION: Patient is a 88 y.o. female and is seen for breast mass/lump. Mammography Digital Diagnostic Right with Dharmesh Computer-aided detection was utilized by the radiologist in the interpretation of this examination. Tomosynthesis was performed in CC and MLO projections. COMPARISON: The present examination has been compared to prior imaging studies performed : 04/06/2023 Mammography Digital Diagnostic Bilateral with Dharmesh at [facility], 04/06/2023 US Breast Complete - Bilateral at [facility] FINDINGS: The breasts are heterogeneously dense, which may obscure small masses. Right 1) Focal Asymmetry: There is a 3.5 cm focal asymmetry seen in the right breast at 11 o'clock, 4 cm from the nipple. Compared to the previous study, there are no significant changes. Prior ultrasound revealed no suspicious sonographic correlate and this is likely transportation services representative of asymmetric fibroglandular tissue. Christy Colby APRN [facility] ORDERABLES Final Result * X-ray Chest 1 View (11/16/2023 6:06 PM CDT) Anatomical Region Laterality Modality Chest Digital Radiogra phy 11/16/2023 6:20 PM CDT Impressions 11/16/2023 6:24 PM CDT New linear opacities in the right lower lung, representing atelectasis. ACTIONABLE ITEMS/RECOMMENDATIONS*: None. *An Actionable Finding is a finding that may be unrelated to the original reason for imaging but potentially actionable, meaning further investigation may be necessary. The Actionable Findings Vigilance Unit (AFVU) assists medical providers with responding to additional radiologic findings that are unexpected and potentially actionable. Narrative 11/16/2023 6:24 PM CDT FULL RESULT: Examination: XR CHEST 1 VW on 11/16/2023 6:06 PM. Clinical History: Lung cancer; presentation to the [facility] with hypoxemia. Indication: Hypoxemia; Baseline Chest X-Ray Comparison: CT chest from 09/10/2023 and portable conventional chest radiography from 04/23/2023. Technique: Frontal radiograph of the chest Findings: Support Apparatus: No thoracic lines or tubes. Lungs/Pleura/Mediastinum: There is no pleural effusion. There is no pneumothorax. There are new areas of linear opacity in the right lower lung. There are posttreatment changes in the left upper lung. The cardiac silhouette is normal in size when accounting for anteroposterior projection. The mediastinal contour is unremarkable for portable technique. Musculoskeletal: The bones are intact. Upper abdomen: No significant abnormality of the upper abdomen is identified on chest radiography. Procedure Note Marti Judge MD PhD - 11/16/2023 FULL RESULT: Examination: XR CHEST 1 VW on 11/16/2023 6:06 PM. Clinical History: Lung cancer; presentation to the [facility] with hypoxemia. Indication: Hypoxemia; Baseline Chest X-Ray Comparison: CT chest from 09/10/2023 and portable conventional chestradiography from 04/23/2023. Technique: Frontal radiograph of the chest Findings: Support Apparatus: No thoracic lines or tubes. Lungs/Pleura/Mediastinum: There is no pleural effusion. There is nopneumothorax. There are new areas of linear opacity in the right lowerlung. There are posttreatment changes in the left upper lung. The cardiacsilhouette is normal in size when accounting for anteroposteriorprojection. The mediastinal contour is unremarkable for portabletechnique. Musculoskeletal: The bones are intact. Upper abdomen: No significant abnormality of the upper abdomen isidentified on chest radiography. IMPRESSION: New linear opacities in the right lower lung, representing atelectasis. ACTIONABLE ITEMS/RECOMMENDATIONS*: None. *An Actionable Finding is a finding that may be unrelated to the originalreason for imaging but potentially actionable, meaning furtherinvestigation may be necessary. The Actionable Findings Vigilance Unit(AFVU) assists medical providers with responding to additional radiologicfindings that are unexpected and potentially actionable. Benigno Durbin MD [facility] ORDERABLES Final Result * (ABNORMAL) POC Chem 8 without Hemoglobin and Hematocrit (11/16/2023 5:35 PM CDT) POC Sodium 139 138 - 146 mmol/L 11/16/2023 5:39 PM CDT [facility] POC Potassium 3.7 3.5 - 4.9 mmol/L 11/16/2023 5:39 PM CDT [facility] POC Chloride 101 98 - 109 mmol/L 11/16/2023 5:39 PM CDT [facility] POC VTCO2 28 24 - 29 mmol/L 11/16/2023 5:39 PM CDT [facility] POC Anion Gap 15 10 - 20 mmol/L 11/16/2023 5:39 PM CDT [facility] POC BUN 13 8 - 26 mg/dL 11/16/2023 5:39 PM CDT [facility] POC Creatinine 1.1 0.6 - 1.3 mg/dL 11/16/2023 5:39 PM CDT [facility] Comment:Medications, especia lly hydroxyurea or supplements, such as ascorbate, can interfere with test results causing a falsely and significantly higher result than expected. If a problem is suspected with a patient's result, a sample should be sent to the laboratory for confirmatory testing. POC I Glu 131(H) 70 - 99 mg/dL 11/16/2023 5:39 PM CDT [facility] Comment:Medications, especia lly hydroxyurea or supplements, such as ascorbate, can interfere with test results causing a falsely and significantly higher result than expected. If a problem is suspected with a patient's result, a sample should be sent to the laboratory for confirmatory testing. POC Ionized Calcium 1.22 1.12 - 1.32 mmol/L 11/16/2023 5:39 PM CDT [facility] POC Sample Type Venous 5:39 PM CDT [facility] POC eGFR 49(L) >=60 mL/min/1.7 3 sq. m 11/16/2023 5:39 PM CDT [facility] Comment: The eGFRcr is calculated with the 2020 CKD-EPI creatinine equation using creatinine, patient's age, and sex for adults 18 years of age and older. Other factors, especially muscle mass, may affect accuracy and need to be considered. According to the Kidney Disease: Improving Global Outcomes (KDIGO) CKD Work Group 2012 Clinical Practice Guideline, chronic kidney disease (CKD) is defined as the abnormalities of kidney structure or function, present for more than 3 months, with implications for health. CKD should be classified by cause, GFR category, and albuminuria category. KDIGO guidelines provide the following GFR categories. Stage / Description / GFR mL/min/1.73 m2: G1* / Normal or high / >= 90 G2* / Mildly decreased / 60-89 G3a / Mildly to moderately decreased / 45-59 G3b / Moderately to severely decreased / 30-44 G4 / Severely decreased / 15-29 G5 / Kidney failure / <15 *In the absence of evidence of kidney damage, neither G1 nor G2 fulfill criteria for CKD. Blood 11/16/2023 5:35 PM CDT 11/16/2023 5:39 PM CDT Narrative [facility] - 11/16/2023 5:39 PM CDT Method description: The i-STAT is an analyzer used for in vitro quantification of various analytes in whole blood. The device uses a single disposable cartridge which contains microfabricated sensors, a calibration solution, fluidics system, and a waste chamber. Each test cartridge contains chemically sensitive biosensors on a silicon chip that are configured to perform specific tests. The microfabricated sensors measure analyte concentration by an electrochemical assay. us Johnson Sierra MD POINT OF CARE TEST ORDERABLES F inal Result [facility] Unless otherwise noted, all lab tests performed by: Division of Pathology and Laboratory Medicine [address] [place] [phone] * (ABNORMAL) .CBC (11/16/2023 5:29 PM CDT) White Blood Cell 10.4 4.1 - 10.5 K/uL 11/16/2023 5:44 PM CDT [facility] Red Blood Cell 3.58(L) 3.99 - 5.46 M/uL 11/16/2023 5:44 PM CDT [facility] Hemoglobin 11.5(L) 12.2 - 15.3 g/dL 11/16/2023 5:44 PM CDT [facility] Hematocrit 36.0(L) 36.4 - 46.8 % 11/16/2023 5:44 PM CDT [facility] Mean Cell Volume 101(H) 82 - 99 fL 11/16/2023 5:44 PM CDT [facility] Mean Cell Hemoglobin 32.1 26.6 - 33.2 pg 11/16/2023 5:44 PM CDT [facility] Mean Cell Hemoglobin Concentration 31.9 31.1 - 35.2 g/dL 11/16/2023 5:44 PM CDT [facility] RDW-SD 47.0 37.5 - 49.7 fL 11/16/2023 5:44 PM CDT [facility] Red Cell Diameter Width 12.7 11.6 - 15.5 % 11/16/2023 5:44 PM CDT [facility] Platelet 335 160 - 397 K/uL 11/16/2023 5:44 PM CDT [facility] Mean Platelet Volume 9.1 9.1 - 12.6 fL 11/16/2023 5:44 PM CDT [facility] INRBC 0.0 0.0 - 0.1 /100 WBC 11/16/2023 5:44 PM CDT [facility] Comment: The INRBC (instrument NRBC) value reflects the enumeration of nucleated red blood cells contained in a 200uL sample of whole blood analyzed by the instrument. This value may differ from the NRBC value reported in a manual differential, which is based on a 100 cell differential. Neutrophil % 67.6 43.2 - 72.7 % 11/16/2023 5:44 PM CDT [facility] Lymphocyte % 21.5 16.8 - 46.2 % 11/16/2023 5:44 PM CDT [facility] Monocyte % 7.3 5.1 - 12.5 % 11/16/2023 5:44 PM CDT [facility] Eosinophil % 2.3 0.4 - 6.3 % 11/16/2023 5:44 PM CDT [facility] Basophil % 0.8 0.2 - 1.4 % 11/16/2023 5:44 PM CDT [facility] IGRE % 0.5 0.1 - 1.5 % 11/16/2023 5:44 PM CDT [facility] Comment:The IGRE% includes M etamyelocytes, Myelocytes and Promyelocytes. Neutrophil Abs 7.01 1.95 - 7.25 K/uL 11/16/2023 5:44 PM CDT [facility] Lymphocyte Abs 2.23 1.01 - 3.24 K/uL 11/16/2023 5:44 PM CDT [facility] Monocyte Abs 0.76 0.24 - 0.85 K/uL 11/16/2023 5:44 PM CDT [facility] Eosinophil Abs 0.24 0.02 - 0.50 K/uL 11/16/2023 5:44 PM CDT [facility] Basophil Abs 0.08 0.02 - 0.09 K/uL 11/16/2023 5:44 PM CDT [facility] IG Abs 0.05 0.01 - 0.12 K/uL 11/16/2023 5:44 PM CDT [facility] Blood Peripheral blood specimen / Unknown Venipuncture / Unknown 11/16/2023 5:29 PM CDT 11/16/2023 5:34 PM CDT us Benigno Durbin MD LAB BLOOD ORDERABLES Fi nal Result [facility] Unless otherwise noted, all lab tests performed by: Division of Pathology and Laboratory Medicine [address] [place] [phone] * (ABNORMAL) Comprehensive Metabolic Panel (11/16/2023 5:29 PM CDT) Bilirubin Total <0.3 0.0 - 1.2 mg/dL 11/16/2023 6:05 PM CDT [facility] Comment:Indocyanine Green (I CG) may cause falsely elevated bilirubin results. Total and direct bilirubin must not be measured from samples containing indocyanine green. False elevation of total bilirubin can be seen in patients with IgG concentrations above 28 g/L. eGFR 47(L) >=60 mL/min/1. 73 sq. m 11/16/2023 6:05 PM CDT [facility] Comment: The eGFRcr is calculated with the 2020 CKD-EPI creatinine equation using creatinine, patient's age, and sex for adults 18 years of age and older. Other factors, especially muscle mass, may affect accuracy and need to be considered. According to the Kidney Disease: Improving Global Outcomes (KDIGO) CKD Work Group 2012 Clinical Practice Guideline, chronic kidney disease (CKD) is defined as the abnormalities of kidney structure or function, present for more than 3 months, with implications for health. CKD should be classified by cause, GFR category, and albuminuria category. KDIGO guidelines provide the following GFR categories. Stage / Description / GFR mL/min/1.73 m2: G1* / Normal or high / >= 90 G2* / Mildly decreased / 60-89 G3a / Mildly to moderately decreased / 45-59 G3b / Moderately to severely decreased / 30-44 G4 / Severely decreased / 15-29 G5 / Kidney failure / <15 *In the absence of evidence of kidney damage, neither G1 nor G2 fulfill criteria for CKD. Tot Protein 7.3 6.4 - 8.3 gm/dL 11/16/2023 6:05 PM CDT [facility] Calcium Level Total 9.6 8.2 - 10.2 mg/dL 11/16/2023 6:05 PM CDT [facility] Alkaline Phosphatase 112(H) 35 - 104 U/L 11/16/2023 6:05 PM CDT [facility] Albumin Level 4.0 3.5 - 5.2 gm/dL 11/16/2023 6:05 PM CDT [facility] AST 21 <=32 U/L 11/16/2023 6:05 PM CDT [facility] ALT 18 <=33 U/L 11/16/2023 6:05 PM CDT [facility] Sodium Level 139 136 - 145 mmol/L 11/16/2023 6:05 PM CDT [facility] Potassium Level 3.8 3.4 - 4.5 mmol/L 11/16/2023 6:05 PM CDT [facility] Chloride 101 98 - 107 mmol/L 11/16/2023 6:05 PM CDT [facility] CO2 27 22 - 29 mmol/L 11/16/2023 6:05 PM CDT [facility] Anion Gap 11 4 - 14 mmol/L 11/16/2023 6:05 PM CDT [facility] Creatinine 1.13(H) 0.51 - 0.95 mg/dL 11/16/2023 6:05 PM CDT [facility] BUN 13 6 - 23 mg/dL 11/16/2023 6:05 PM CDT [facility] Glucose Level 132(H) 70 - 99 mg/dL 11/16/2023 6:05 PM CDT [facility] Comment: Effective 09/01/15, the glucose reference intervals have been updated based on [place] Diabetes [employer] guidelines (Standards of Medical Care in Diabetes 2016. Diabetes Care 2016; 39: S13-S22). Fasting blood glucose: Normal: 70-99 mg/dL Impaired fasting glucose (increased risk for diabetes or pre-diabetes): 100-125 mg/dL Diabetes mellitus: >/=126 mg/dL Random blood glucose: Normal: 70-199 mg/dL Note: Random glucose >100 mg/dL is associated with increased risk for diabetes. Blood Peripheral blood specimen / Unknown Venipuncture / Unknown 11/16/2023 5:29 PM CDT 11/16/2023 5:34 PM CDT us Benigno Durbin MD LAB BLOOD ORDERABLES Fi nal Result [facility] Unless otherwise noted, all lab tests performed by: Division of Pathology and Laboratory Medicine [address] [place] [id number] * Phosphorus Level (11/16/2023 5:29 PM CDT) Phosphorus Level 3.3 2.5 - 4.5 mg/dL 11/16/2023 6:05 PM CDT [facility] Blood Peripheral blood specimen / Unknown Venipuncture / Unknown 11/16/2023 5:29 PM CDT 11/16/2023 5:34 PM CDT us Benigno Durbin MD LAB BLOOD ORDERABLES Fi nal Result [facility] Unless otherwise noted, all lab tests performed by: Division of Pathology and Laboratory Medicine [address] [place] [phone] * Magnesium Level (11/16/2023 5:29 PM CDT) Magnesium Level 2.1 1.6 - 2.6 mg/dL 11/16/2023 6:05 PM CDT [facility] Blood Peripheral blood specimen / Unknown Venipuncture / Unknown 11/16/2023 5:29 PM CDT 11/16/2023 5:34 PM CDT Benigno Durbin MD LAB BLOOD ORDERABLES Fi nal Result Performing Organization Address [facility] Co de Phone Number [facility] Unless otherwise noted, all lab tests performed by: Division of Pathology and Laboratory Medicine [address] [place] [phone] after 11/07/2023 [place] [address] MEDICARE PART A AND B AAR-SECONDARY ONLY MEDICARE PART A AND B AAR-SECONDARY ONLY Advance Directives * Full Code (Latest Code Status on File) Date Activated Date Inactivated Comments 07/14/2024 8:49 AM Update based on Advanced Directive Documentation Care Teams Beer Brewer Relationship Specialty Start Date End Date Christi Hodgson [id number] [place] [address] PCP - External Primary Care Provider 03/27/23 Victorina Bender MD [address] [place] [phone] [email or web address] PCP - General Internal Medicine 03/29/23 11/18/23 Karthikeyan Toledo MD [address] [place] [phone] [email or web address] Consulting Physician Pulmonary Medicine 04/10/23 Kiana Arreaga MD [address] [place] [phone] [email or web address] Consulting Physician Cardiothoracic Surgery 05/10/23 Nico Lopez MD [address] [place] [phone] [email or web address] Consulting Physician Radiation Oncology 05/10/23 Camilla Carlos, RADIO REPAIRER DOMESTIC [address] [place] [phone] [email or web address] Nurse Practitioner Cancer Prevention 07/21/24
[2024-11-06 15:25] LABS: Absolute Lymphocytes (CBC) 1.8 K/uL (0.7-4.9); Hematocrit 31.8 % (36.0-45.0); Hemoglobin 10.1 g/dL (12.0-15.0); MCH 28.7 pg (27.0-35.0); MCHC 31.7 g/dL (32.0-36.0); MCV 90.4 fL (80-100); MPV 6.9 fL (7.6-11.3); Nucleated RBC Absolute Count 0.0 (0-0); Nucleated Red Blood Cells % 0.0 % (0-0); RBC Red Blood Cell Count 3.52 M/uL (3.86-4.86); White Blood Count 7.60 thou/uL (4.3-10.9)
[2024-11-06 15:41] LABS: PT Prothrombin Time 11.4 SECONDS (10-13.0); PTT, Activated Partial Thromb 28.7 SECONDS (27.2-37.4); Protime INR 1.01
[2024-11-06 15:45] LABS: ALT/SGPT 17.0 U/L (13-56); AST/SGOT 23.0 U/L (15-37); Albumin 2.9 g/dL (3.4-5.0); Alkaline Phosphatase 95.0 U/L (45-117); Anion Gap 9.0 mEq/L (5.0-15.0); BUN Blood Urea Nitrogen 16.0 mg/dL (7-18); Glucose Level 98.0 mg/dL (74-106); Potassium 4.0 mEq/L (3.5-5.1)
[2024-11-06 15:46] LABS: Albumin/Globulin Ratio 0.8 (1.1-1.8); Globulin 3.7 g/dL (2.3-3.5); Lipase 33.0 U/L (13-75)
--- NOTE | 2024-11-06 16:30 | RAD REPORT ---
EXAMINATION: CT ABDOMEN AND PELVIS WITHOUT CONTRAST CLINICAL INDICATION: RECTAL BLEEDING, GI BLEED TECHNIQUE: CT abdomen and pelvis was performed, without IV contrast, as per department protocol. Axia l, sagittal and coronal reconstructions were obtained. One or more of the following dose reduction techniques were used: Automated exposure control, adjustment of the mA and kV according to the patien t size, and iterative reconstruction. Unless otherwise specified, incidental findings do not require dedicated imaging follow-up. COMPARISON: No prior exam. FINDINGS: The lack of intravenous contrast limits the sensitivity of this exam for evaluation of solid visceral organs, vascular structures, and retroperitoneum. LOWER CHEST: The visualized lung bases are clear. LIVER:Normal in size and contour. No focal lesion. Cholecystectomy clips. SPLEEN: Normal size. No focal lesion. PANCREAS: No mass, ductal dilation, or martir-pancreatic fluid. ADRENALS: Normal; no mass. KIDNEYS AND URETERS: Normal size and contour. No hydronephrosis. Benign bilateral renal cysts. URINARY BLADDER: Normal contour. GASTROINTESTINAL TRACT: No evidence of bowel obstruction, significant free fluid, free air or abscess . APPENDIX: Appendix not visualized, but no inflammatory changes in region of appendix. LYMPH NODES: No lymphadenopathy. MUSCULOSKELETAL: Moderate multilevel spinal degenerative changes. ADDITIONAL FINDINGS: Moderate aortoiliac atherosclerosis. IMPRESSION: No acute abnormalities in the abdomen or pelvis, with evaluation limited by lack of IV contrast.
--- NOTE | 2024-11-06 16:37 | RAD REPORT ---
EXAM: CTA of the abdomen and pelvis HISTORY: Chest pain and back pain rectal bleeding COMPARISON: None TECHNIQUE: Multiple contiguous axial images were obtained a CTA of the abdomen and pelvis with contra st per angiographic protocol. This involves 3D reconstructions, MIPs, volume rendered images and/or shaded surface rendering. One or more of the following dose reduction techniques were used: Automated exposure control, adjustment of the mA and/or kV according to patient size, and/or iterative reconstruction. Unless otherwise specified, incidental findings do not require dedicated imaging foll ow-up. Sagittal and coronal 3-D MIP reformats were performed. FINDINGS: DESCENDING THORACIC AORTA: Included infeior aspect demonstrates normal caliber without evidence of d issection or aneurysmal dilatation. ABDOMINAL AORTA: Normal caliber without evidence of dissection or aneurysmal dilatation. CELIAC TRUNK: Moderate ostial plaquing. SMA: Moderate ostial plaquing. HONORIO: Patent RENAL ARTERIES: Moderate ostial plaquing bilaterally, greater on the right. Nonostial stent is seen i n the right renal artery. LIVER: Mild fatty liver.. Cholecystectomy clips. SPLEEN: Unremarkable. PANCREAS: Unremarkable. KIDNEYS: Unremarkable. ADRENALS: Unremarkable. BOWEL: Moderate stool throughout the colon.. Mild enhancement in the region of the anal mucosa. RETROPERITONEUM: No lymphadenopathy. BONES: Unremarkable IMPRESSION: Moderate atherosclerotic vascular disease is present. Mild contrast enhancement is seen in the region of the anus. Direct visualization may be considered.
--- NOTE | 2024-11-06 17:28 | ER ---
Nurse's Notes [facility] Name: Meenu Rangel Age: 89 yrs Sex: Female : 1935 Arrival Date: 11/06/2024 Time: 14:34 Bed 18 Private MD: Diagnosis: GI Bleed/ Gastrointestinal hemorrhage, unspecified Presentation: 11/06 14:46 Chief complaint: Patient states: Patient c/o bright red rectal bleeding that began an ar8 hour ago. 14:46 Coronavirus screen: At this time, the client does not indicate any symptoms associated ar8 with coronavirus-19. Ebola Screen: No symptoms or risks identified at this time. Initial Sepsis Screen: Does the patient meet any 2 criteria? No. Patient's initial sepsis screen is negative. Does the patient have a suspected source of infection? No. Patient's initial sepsis screen is negative. Risk Assessment: Do you want to hurt yourself or someone else? Patient reports no desire to harm self or others. Onset of symptoms was November 06, 2024 at 13:30. 14:46 Method Of Arrival: EMS: [facility] ar8 14:46 Acuity: LENNIE 3 ar8 Triage Assessment: 14:50 General: Appears in no apparent distress. Behavior is calm, cooperative. ar8 14:50 Pain: Denies pain. Neuro: Level of Consciousness is awake, alert, obeys commands, ar8 Oriented to person, place, time, situation. Cardiovascular: Patient's skin is warm and dry. Respiratory: Airway is patent Respiratory effort is even, unlabored, Respiratory pattern is regular, symmetrical. GI: No signs and/or symptoms were reported involving the gastrointestinal system. GI: Reports rectal bleeding. : Reports. : No signs and/or symptoms were reported regarding the genitourinary system. Derm: No signs and/or symptoms reported regarding the dermatologic system. Musculoskeletal: No signs and/or symptoms reported regarding the musculoskeletal system. Historical: - Allergies: 14:58 Augmentin (Rash); ar8 14:58 PENICILLINS (Rash); ar8 - PMHx: 14:58 Anxiety; Congestive heart failure; COPD; Crohn's Disease; depressive disorder; ar8 Hypertensive disorder; neuropathy; osteoarthritis; osteoarthritis; psoriasis; - PSHx: 14:58 R BKA; ar8 - Immunization history:: Adult Immunizations up to date. - Infectious Disease History:: Denies. - Social history:: Smoking status: Patient denies any tobacco usage or history of. - Family history:: not pertinent. - Hospitalizations: : No recent hospitalization is reported. Screenin:03 [facility] ED Fall Risk Assessment (Adult) History of falling in the last 3 months, ar8 including since admission No falls in past 3 months (0 pts) Confusion or Disorientation No (0 pts) Intoxicated or Sedated No (0 pts) Impaired Gait No (0 pts) Mobility Assist Device Used No (0 pt) Altered Elimination No (0 pt) Score/Fall Risk Level 0 - 2 = Low Risk Oriented to surroundings, Maintained a safe environment. Abuse screen: Denies threats or abuse. Nutritional screening: No deficits noted. Tuberculosis screening: No symptoms or risk factors identified. Assessment: 15:03 Reassessment: See triage assessment. ar8 17:30 Reassessment: Patient and/or family updated on plan of care and expected duration. Pain ar8 level reassessed. Patient is alert, oriented x 3, equal unlabored respirations, skin warm/dry/pink. Vital Signs: 14:46 BP 138 / 55; Pulse 68; Resp 18 S; Temp 98.5(O); Pulse Ox 94% on R/A; Weight 58.97 kg; ar8 Height 4 ft. 10 in. ; Pain 0/10; 15:21 BP 146 / 51; Pulse 68; Resp 20; Pulse Ox 95% on R/A; Pain 0/10; ar8 16:21 BP 129 / 61; Pulse 74; Resp 16; Pulse Ox 100% on R/A; Pain 0/10; ar8 17:00 BP 144 / 62; Pulse 71; Resp 18; Pulse Ox 96% on R/A; Pain 0/10; ar8 18:00 BP 141 / 70; Pulse 68; Resp 19; Pulse Ox 95% on R/A; Pain 0/10; ar8 18:45 BP 141 / 65; Pulse 68; Resp 18; Pulse Ox 95% on R/A; Pain 0/10; ar8 14:46 Body Mass Index 27.17 (58.97 kg, 147.32 cm) ar8 14:46 Pain Scale: Adult ar8 15:21 Pain Scale: Adult ar8 16:21 Pain Scale: Adult ar8 17:00 Pain Scale: Adult ar8 18:00 Pain Scale: Adult ar8 18:45 Pain Scale: Adult ar8 ED Course: 14:46 Patient arrived in ED. bp 14:46 Bed in low position. Call light in reach. Side rails up X2. Provided Education on: plan ar8 of care, diagnostics, estimated wait time. Client placed on continuous cardiac and pulse oximetry monitoring. NIBP monitoring applied. 14:46 Warm blanket given. ar8 14:46 No provider procedures requiring assistance completed. Maintain EMS IV. Dressing ar8 intact. Good blood return noted. Site clean \T\ dry. Gauge \T\ site: 20G R AC. Flushed with 10 mL NS. 14:50 Neto Abrams MD is Attending Physician. rn 14:50 Arm band placed on right wrist. ar8 14:57 Yinka Lopez, WOODY is Primary Nurse. ar8 14:58 Triage completed. ar8 15:09 Radiology exam delayed due to lab results not completed at this time. (BUN/Creatinine) nj IV insertion attempt and/or patient not having appropriate IV at this time. 15:15 EKG done, by ED staff, reviewed by Neto Abrams MD. ar8 15:20 Type And Screen Sent. ar8 15:20 Lactate w/ 2H reflex if indic. Sent. ar8 15:20 Protime (+inr) Sent. ar8 15:21 Ptt, Activated Sent. ar8 15:21 CBC with Diff Sent. ar8 15:21 CMP Sent. ar8 15:21 Lipase Sent. ar8 16:[address] via stretcher. ar8 16:15 CT Abdomen - Angio In Process Unspecified. EDMS 16:15 Pelvis Angio In Process Unspecified. EDMS 16:15 Abdomen In Process Unspecified. EDMS 16:20 Patient moved back from CT. ar8 17:31 transfer initiated with Jessica at the [facility] transfer center. bc6 18:05 acceptance received with Josette for [facility] RM [id number] Alicia who bc6 accepted at ([id number]). 18:33 Report given to WOODY Motley at [facility]. ar8 19:07 Patient transferred, IV remains in place. ar8 Administered Medications: No medications were administered Medication: 15:03 VIS not applicable for this client. ar8 Outcome: 17:28 ER care complete, transfer ordered by . woody 19:07 Transferred by ground EMS to [facility], ar8 19: Condition: stable : Discharge instructions given to N/A 19: Patient left the ED. ar8 Signatures: Dispatcher [employer] EDMS Neto Abrams MD MD rn Jordan, Nathan nj Peltier, Brian, RN RN Nicole Aaron [facility] Yinka Lopez RN RN ar8
--- NOTE | 2024-11-06 17:28 | EDPHYS ---
Physician Documentation [facility] Name: Meenu Rangel Age: 89 yrs Sex: Female : 1935 Arrival Date: 11/06/2024 Time: 14:34 Bed 18 Private MD: ED Physician Neto Abrams HPI: 11/06 15:09 This 89 yrs old Female presents to ER via EMS with complaints of Bloody Stools. rn 15:09 Patient reports rectal bleeding, started about an hour prior to arrival, has had rn gastric ulcers before but was melena at that time, reports bright red blood today. Associated with lower abdominal pain and cramping. No vomiting. No fever. No trauma. Blood was initially mixed with stool but now is just blood. No blood thinners other than baby aspirin. Historical: - Allergies: 14:58 Augmentin (Rash); ar8 14:58 PENICILLINS (Rash); ar8 - PMHx: 14:58 Anxiety; Congestive heart failure; COPD; Crohn's Disease; depressive disorder; ar8 Hypertensive disorder; neuropathy; osteoarthritis; osteoarthritis; psoriasis; - PSHx: 14:58 R BKA; ar8 - Immunization history:: Adult Immunizations up to date. - Infectious Disease History:: Denies. - Social history:: Smoking status: Patient denies any tobacco usage or history of. - Family history:: not pertinent. - Hospitalizations: : No recent hospitalization is reported. ROS: 15:09 Constitutional: Negative for fever, chills, and weight loss, Cardiovascular: Negative rn for chest pain, palpitations, and edema, Respiratory: Negative for shortness of breath, cough, wheezing, and pleuritic chest pain, Abdomen/GI: Positive for rectal bleeding MS/Extremity: Negative for injury and deformity, Neuro: Negative for headache, weakness, numbness, tingling, and seizure, Exam: 15:09 Constitutional: This is a well developed, well nourished patient who is awake, alert, rn no acute distress, appears slightly anxious Cardiovascular: Regular rate and rhythm. No pulse deficits. Respiratory: No increased work of breathing, no retractions or nasal flaring. Abdomen/GI: Soft, mild suprapubic and right lower quadrant tenderness MS/ Extremity: Pulses equal, no cyanosis. Neurovascular intact. Full, normal range of motion. Equal circumference. Neuro: Awake and alert, GCS 15 18:50 ECG was reviewed by the Attending Physician. rn Vital Signs: 14:46 BP 138 / 55; Pulse 68; Resp 18 S; Temp 98.5(O); Pulse Ox 94% on R/A; Weight 58.97 kg; ar8 Height 4 ft. 10 in. ; Pain 0/10; 15:21 BP 146 / 51; Pulse 68; Resp 20; Pulse Ox 95% on R/A; Pain 0/10; ar8 16:21 BP 129 / 61; Pulse 74; Resp 16; Pulse Ox 100% on R/A; Pain 0/10; ar8 17:00 BP 144 / 62; Pulse 71; Resp 18; Pulse Ox 96% on R/A; Pain 0/10; ar8 18:00 BP 141 / 70; Pulse 68; Resp 19; Pulse Ox 95% on R/A; Pain 0/10; ar8 18:45 BP 141 / 65; Pulse 68; Resp 18; Pulse Ox 95% on R/A; Pain 0/10; ar8 14:46 Body Mass Index 27.17 (58.97 kg, 147.32 cm) ar8 14:46 Pain Scale: Adult ar8 15:21 Pain Scale: Adult ar8 16:21 Pain Scale: Adult ar8 17:00 Pain Scale: Adult ar8 18:00 Pain Scale: Adult ar8 18:45 Pain Scale: Adult ar8 MDM: 14:50 Medical Screening Exam initiated rn 17:08 ED course: I have called Dr. Rey for consultation twice now, no answer. rn 17:26 Differential diagnosis: Internal hemorrhoids, AVM, diverticulosis. Data reviewed: vital rn signs, nurses notes, lab test result(s), radiologic studies, CT scan, and as a result, I will admit patient. Consideration of Admission/Observation Patient was admitted/placed on observation. Escalation of care including admission/observation considered. Counseling: I had a detailed discussion with the patient and/or guardian regarding the historical points, exam findings, and any diagnostic results supporting the discharge/admit diagnosis, lab results, radiology results, the need for further work-up and treatment in the hospital, the need to transfer to another facility, for higher level of care, [facility] does not immediately have the required specialist. ED course: Unable to contact GI, patient with active rectal bleed, initiated transfer to [facility]. 11/06 14:55 Order name: CBC with Diff; Complete Time: 16:04 rn 11/06 14:55 Order name: CMP; Complete Time: 16:04 rn 11/06 14:55 Order name: Lipase; Complete Time: 16:04 rn 11/06 14:55 Order name: Protime (+inr); Complete Time: 16:04 rn 11/06 14:55 Order name: Ptt, Activated; Complete Time: 16:04 rn 11/06 14:55 Order name: Lactate w/ 2H reflex if indic.; Complete Time: 16:04 rn 11/06 14:56 Order name: Type And Screen rn 11/06 14:55 Order name: CT Abdomen - Angio; Complete Time: 16:46 rn 11/06 15:49 Order name: Pelvis Angio; Complete Time: 16:46 EDMS 11/06 15:49 Order name: Abdomen ; Complete Time: 16:46 EDMS 11/06 14:55 Order name: IV Saline Lock; Complete Time: 15:21 rn 11/06 14:55 Order name: Labs collected and sent; Complete Time: 15:21 rn EC:50 Rate is 67 beats/min. Rhythm is regular. QRS [place] is Normal. UT interval is normal. QRS rn interval is normal. QT interval is normal. No Q waves. T waves are Normal. No ST changes noted. Clinical impression: Normal ECG. Interpreted by me. Reviewed by me. Administered Medications: No medications were administered Disposition Summary: 11/06/24 17:28 Transfer Ordered Notes: Transfer Location: [facility] rn Reason: Higher level of care rn Condition: Stable rn Problem: new rn Symptoms: are unchanged rn Accepting Physician: (11/06/24 19:07) ar8 Diagnosis - GI Bleed/ Gastrointestinal hemorrhage, unspecified rn Forms: - Medication Reconciliation Form rn - SBAR form strategy intern time excluding procedures: 17:49 Critical care time: Bedside Care: 30 minutes, Consultation: 5 minutes. Total time: 35 rn minutes Signatures: Dispatcher [employer] EDNeto Lemos MD MD rn Rodriguez, Andrea, RN RN ar8 Corrections: (The following items were deleted from the chart) 14:56 14:56 CBC+H.LAB.BRZ ordered. EDMS EDMS 14:56 14:56 COMPREHENSIVE METABOLIC PANEL+C.LAB.BRZ ordered. EDMS EDMS 14:56 14:56 LIPASE+C.LAB.BRZ ordered. EDMS EDMS 14:56 14:56 PROTIME (+INR)+COAG.LAB.BRZ ordered. EDMS EDMS 14:56 14:56 PTT, ACTIVATED+COAG.LAB.BRZ ordered. EDMS EDMS 14:56 14:56 LACTATE+C.LAB.BRZ ordered. EDMS EDMS 19:07 17:28 Dr. rae ar8
[2024-11-06 19:22] VITALS: TEMP 98.5
[2024-11-06 19:28] VITALS: O2SAT 95
[2024-11-06 19:29] VITALS: BP 141/65
== END 2024-11-06 19:07 | disposition short-term general hospital (02) ==
LOC: ER 14:34
DX: K92.2 Gastrointestinal hemorrhage, unspecified (principal); R10.30 Lower abdominal pain, unspecified
CPT/HCPCS: 93005; 85025; 36415; 86900; 86850; 85610; 86870; 86901; 83605; 85730; 83690; 80053; 72191; 74175; 74176; 99285; Q9967